=== PATIENT | male | born 1960 | race Caucasian/White ===

== ENCOUNTER → 2020-01-16 10:46 | Outpatient (BNVA) | payer OTHER, SELFPAY | PROVIDERS: Family Provider Emergency Medicine Emergency Medical Services; PCP Emergency Medicine Emergency Medical Services; Visit Provider Urology | DX: N39.9 Disorder of urinary system, unspecified (principal); N48.6 Induration penis plastica | CPT/HCPCS: 81001 ==

== ENCOUNTER → 2020-11-21 14:47 | Outpatient (BNVA) | payer OTHER, SELFPAY | PROVIDERS: Family Provider Emergency Medicine Emergency Medical Services; PCP Emergency Medicine Emergency Medical Services; Visit Provider Urology | DX: N48.6 Induration penis plastica (principal) | CPT/HCPCS: 81003 ==

== ENCOUNTER → 2021-05-29 15:00 | Outpatient (BNVA) | payer OTHER, SELFPAY | PROVIDERS: Family Provider Emergency Medicine Emergency Medical Services; PCP Emergency Medicine Emergency Medical Services; Visit Provider Urology | DX: N48.6 Induration penis plastica (principal) | CPT/HCPCS: 81003 ==

== ENCOUNTER → 2021-12-02 12:28 | Outpatient (BNVA) | payer OTHER, SELFPAY | PROVIDERS: Family Provider Emergency Medicine Emergency Medical Services; PCP Emergency Medicine Emergency Medical Services; Visit Provider Internal Medicine Cardiovascular Disease | DX: R07.9 Chest pain, unspecified (principal); I10 Essential (primary) hypertension; E78.5 Hyperlipidemia, unspecified; E11.9 Type 2 diabetes mellitus without complications; E66.9 Obesity, unspecified; Z68.39 Body mass index [BMI] 39.0-39.9, adult | CPT/HCPCS: 93005; 99204 ==

== ENCOUNTER → 2022-04-01 12:18 | Outpatient (BNVA) | payer OTHER, SELFPAY | PROVIDERS: Family Provider Emergency Medicine Emergency Medical Services; PCP Emergency Medicine Emergency Medical Services; Visit Provider Internal Medicine Cardiovascular Disease | DX: I10 Essential (primary) hypertension (principal); E11.9 Type 2 diabetes mellitus without complications; E66.9 Obesity, unspecified; Z68.41 Body mass index [BMI] 40.0-44.9, adult; E78.5 Hyperlipidemia, unspecified; R07.89 Other chest pain | CPT/HCPCS: 99213 ==

== ENCOUNTER → 2022-05-27 13:07 | Outpatient (BNVA) | payer OTHER, SELFPAY | PROVIDERS: Family Provider Emergency Medicine Emergency Medical Services; PCP Emergency Medicine Emergency Medical Services; Visit Provider Urology | DX: N48.6 Induration penis plastica (principal) | CPT/HCPCS: 81003; 99213 ==

== ENCOUNTER → 2022-10-22 09:22 | Outpatient (BNVA) | payer OTHER, SELFPAY | PROVIDERS: Family Provider Emergency Medicine Emergency Medical Services; PCP Emergency Medicine Emergency Medical Services; Visit Provider Podiatrist Foot & Ankle Surgery | DX: I73.9 Peripheral vascular disease, unspecified (principal); B35.1 Tinea unguium; M72.2 Plantar fascial fibromatosis; L84 Corns and callosities; E11.9 Type 2 diabetes mellitus without complications | CPT/HCPCS: 11056; 99204 ==

== ENCOUNTER → 2023-09-16 07:57 | Outpatient (BNVA) | payer OTHER, SELFPAY | PROVIDERS: Family Provider Emergency Medicine Emergency Medical Services; PCP Emergency Medicine Emergency Medical Services; Referring Provider Emergency Medicine Emergency Medical Services; Visit Provider Surgery | DX: Z12.11 Encounter for screening for malignant neoplasm of colon (principal) | CPT/HCPCS: 99203 ==

== ENCOUNTER 2023-09-28 10:32 | Outpatient (CLI) | payer OTHER, SELFPAY ==
--- NOTE | 2023-09-28 10:38 | MR_ITS ---
WS: [id number] MRI BRAIN WITH AND WITHOUT CONTRAST HISTORY: HEADACHES X 3 MONTHS COMPARISON: None available. TECHNIQUE: Multiplanar imaging performed through the brain with MultiHance 20 ml's IV. No acute infarcts are seen. Shannon-white matter differentiation is well preserved. There are a few scat tered T2 and FLAIR signal hyperintensities in the subcortical and periventricular white matter. Distr ibution is most likely small vessel disease. No pericallosal signal abnormality. No susceptibility artifacts or prior lacunar infarcts. Ventricles and extra-axial spaces are normal. Clivus and pituitary gland are normal. Visualized posterior fossa and brainstem are also normal. Postcontrast images are negative for masses or vascular malformations. Dural venous sinuses are normal. Paranasal sinuses: Well aerated with no significant disease. Mastoid air cells: Normal. Calvarium and scalp: Normal. IMPRESSION: 1. No acute infarct or enhancing mass. 2. No significant atrophy. 3. Very minimal small vessel ischemic type changes in the periventricular white matter. 4. No sinus disease.
[2023-09-28] MEDS: gadobenate dimeglumine 20 mL vial IV (12:20)
== END 2023-09-28 10:33 | disposition home or self-care (01) ==
LOC: RAD 10:33
PROVIDERS: Family Provider Emergency Medicine Emergency Medical Services; PCP Emergency Medicine Emergency Medical Services; Visit Provider Emergency Medicine Emergency Medical Services
DX: R51.9 Headache, unspecified (principal)
CPT/HCPCS: 70553; A9577

== ENCOUNTER 2023-12-17 07:56 | Day surgery (SDC) | payer OTHER, SELFPAY ==
--- NOTE | 2023-12-17 07:31 | W.PM.OPSFHP ---
Same Day Surgery H&P Indication for Procedure/HPI DATE OF PROCEDURE: December 17, 2023 CHIEF COMPLAINT/INDICATIONFOR SURGICAL PROCEDURE: need for screening colonoscopy PREOP DIAGNOSIS: need for screening colonoscopy PLANNED PROCEDURE: Operation Date: 12/17/23 09:15 Proposed Procedures p 80738 colon G0105 screen colon H risk Z12.11(Not Applicable) - Eric Slater MD Medications/Allergies* Home Medications Medication Instructions Recorded Confirmed Type lisinopril 20 mg tablet 20 mg PO DAILY 01/16/20 12/15/23 History rosuvastatin 10 mg tablet 10 mg PO DAILY 01/16/20 12/15/23 History Lactobacillus acidophilus 10 mg PO DAILY 09/16/23 12/15/23 History (Acidophilus capsule) cholecalciferol (vitamin D3) 50 50 mcg PO DAILY 09/16/23 12/15/23 History mcg (2,000 unit) capsule coenzyme Q10 100 mg capsule 100 mg PO DAILY 09/16/23 12/15/23 History (CoQ-10) empagliflozin 25 mg tablet 25 mg PO DAILY 09/16/23 12/15/23 History (Jardiance) metformin 500 mg tablet 1,000 mg PO BIDAC 09/16/23 12/15/23 History multivitamin 1 tab PO DAILY 09/16/23 12/15/23 History sulfamethoxazole 800 1 tab PO BID 12/15/23 12/15/23 History mg-trimethoprim 160 mg tablet Allergies/Adverse Reactions Allergy/AdvReac Type Severity Reaction Status Date / Time No Known Allergies Allergy Verified 12/15/23 11:30 Pertinent History/Comorbid Conditions* Medical History (Updated 09/16/23 @ 11:48 by Eric Slater MD) Diabetes mellitus Obesity Hyperlipidemia HTN (hypertension) Peyronie's disease Family History (Updated 01/16/20 @ 10:42 by GABRIELLE Thompson) Father, at age 70 CAD (coronary artery disease) Brother Cancer Father Social History Smoking and tobacco/nicotine status: never used tobacco/nicotine Alcohol intake: never Substance/Drug Use: unknown Adopted: No Caregiver/support person: No Lives independently: No Household members: spouse Marital status: Current occupational status: retired Pertinent Exam Findings alert, oriented x 3, clear to auscultation bilaterally and regular rate & rhythm Recommendations Surgery/Procedure today Coding Level of Care Code Acute Code for Chg Fwd
[2023-12-17 08:10] VITALS: BP 135/89; PULSE 92; RESP 18; TEMP 36.6; O2SAT 97
[2023-12-17] MEDS: sodium chloride 0.9% 1,000 ML 30 ML IV (08:10)
[2023-12-17 08:11] VITALS: BMI 39.9
[2023-12-17 08:22] LABS: Glucose Point of Care 95 mg/dL (70-110)
--- NOTE | 2023-12-17 08:22 | ANES.PREANE2 ---
Pre-Anesthetic Assessment Height/Weight: Height 1.7 m Weight 115.666 kg Temp Pulse Resp BP Pulse Ox O2 Del Method 97.9 F 92 18 135/89 97 Room Air 12/17/23 08:10 12/17/23 08:10 12/17/23 08:10 12/17/23 08:10 12/17/23 08:10 12/17/23 08:10 Preop Diagnosis: need for screening colonoscopy Operation Date: 12/17/23 09:15 Proposed Procedures p [id number] colon G0105 screen colon H risk Z12.11(Not Applicable) - Eric Slater MD Was Beta Leon taken within 24 hours: N/A Was Clonidine taken within 24 hours: N/A Last Intake: 23:00 Social No alcohol and No tobacco Exam alert and oriented x 3 Airway Submandibular: within normal limits Cervical ROM: within normal limits Mallampati: Class III Dentition: other (missing) History/ROS No significant history except as noted Pulmonary None reported CV/HEM Hypertension None reported Hepatic None reported GI Gastroesophageal Reflux Disease Metabolic Diabetes Mellitus and Morbid Obesity Musc/skel Lower Back Pain and Osteoarthritis/DJD Neuropsych None reported Anesthetic Plan ASA status: 3 Anesthesia: MAC Risk of > 500 ml blood loss (7ml/kg in children): No Medications/Allergies Home Medications Medication Instructions Recorded Confirmed Last Taken Type lisinopril 20 mg tablet 20 mg PO DAILY 01/16/20 12/15/23 12/15/23 History rosuvastatin 10 mg tablet 10 mg PO DAILY 01/16/20 12/15/23 12/15/23 History Lactobacillus acidophilus 10 mg PO DAILY 09/16/23 12/15/23 12/15/23 History (Acidophilus capsule) cholecalciferol (vitamin D3) 50 50 mcg PO DAILY 09/16/23 12/15/23 12/15/23 History mcg (2,000 unit) capsule coenzyme Q10 100 mg capsule 100 mg PO DAILY 09/16/23 12/15/23 12/15/23 History (CoQ-10) empagliflozin 25 mg tablet 25 mg PO DAILY 09/16/23 12/15/23 12/15/23 History (Jardiance) metformin 500 mg tablet 1,000 mg PO BIDAC 09/16/23 12/15/23 12/15/23 History multivitamin 1 tab PO DAILY 0212/15/23 12/15/23 History sulfamethoxazole 800 1 tab PO BID 12/15/23 12/15/23 12/15/23 History mg-trimethoprim 160 mg tablet Allergies Allergy/AdvReac Type Severity Reaction Status Date / Time No Known Allergies Allergy Verified 12/17/23 08:14 Current Medications Generic Name Dose Route Start Last Admin Trade Name Namq PRN Reason Stop Dose Admin Sodium Chloride 1,000 mls @ 30 mls/hr 12/17/23 08:00 12/17/23 08:10 Sodium Chloride 0.9% IV 12/18/23 07:59 30 mls/hr .Q24H JAMES Administration PFSH Anesthesia Medical History (Updated 09/16/23 @ 11:48 by Eric Slater MD) Diabetes mellitus Obesity Hyperlipidemia HTN (hypertension) Peyronie's disease Family History Brother CAD (coronary artery disease) Father , at age 70 Cancer Social History Smoking and tobacco/nicotine status: never used tobacco/nicotine Alcohol intake: never Substance/Drug Use: unknown Adopted: No Caregiver/support person: No Lives independently: No Household members: spouse Marital status: Current occupational status: retired Data Anesthesia Cardiac Studies: No Data to Display
[2023-12-17 09:24] VITALS: BP 92/66; PULSE 93; RESP 18; TEMP 36.3; O2SAT 91
[2023-12-17 09:33] VITALS: BP 97/60; PULSE 89; RESP 18; O2SAT 93
[2023-12-17 09:43] VITALS: BP 101/68; PULSE 86; RESP 18; O2SAT 95
[2023-12-17 09:53] VITALS: BP 127/75; PULSE 81; RESP 18; O2SAT 96
--- NOTE | 2023-12-17 10:15 | ANE.PACU2 ---
Inpatient post-anesthesia follow up: Airway intact: Yes Vital signs: Temperature 97.3 F Pulse Rate 81 Respiratory Rate 18 Blood Pressure 127/75 Pulse Oximetry 96 Oxygen Delivery Me thod Room Air Oxygen Flow Rate Fraction of Inspir ed Oxygen Hydration adequate: Yes Nausea and vomiting: No Pain level: 1 Mental status: Baseline
== END 2023-12-17 10:15 | disposition home or self-care (01) ==
PROVIDERS: Family Provider Emergency Medicine Emergency Medical Services; PCP Emergency Medicine Emergency Medical Services; Visit Provider Surgery
PROC: 0DJD8ZZ Inspection of Lower Intestinal Tract, Via Natural or Artificial Opening Endoscopic (ICD-10-PCS; CPT 45378; principal; 2023-12-17 09:15)
DX: Z12.11 Encounter for screening for malignant neoplasm of colon (principal); K63.5 Polyp of colon; E11.9 Type 2 diabetes mellitus without complications
CPT/HCPCS: 36416; 45385; 82962; 88305; J2704; J7030

== ENCOUNTER → 2023-12-23 08:24 | Outpatient (BNVA) | payer OTHER, SELFPAY | PROVIDERS: Family Provider Emergency Medicine Emergency Medical Services; PCP Emergency Medicine Emergency Medical Services; Visit Provider Surgery | DX: Z09 Encounter for follow-up examination after completed treatment for conditions other than malignant neoplasm (principal) | CPT/HCPCS: 99213 ==

== ENCOUNTER → 2024-03-15 07:58 | Outpatient (BNVA) | payer OTHER, SELFPAY | PROVIDERS: Family Provider Emergency Medicine Emergency Medical Services; PCP Emergency Medicine Emergency Medical Services; Visit Provider Podiatrist Foot & Ankle Surgery | DX: L60.0 Ingrowing nail (principal) | CPT/HCPCS: 99213 ==

== ENCOUNTER → 2024-05-26 07:39 | Outpatient (BNVA) | payer OTHER, SELFPAY | PROVIDERS: Family Provider Emergency Medicine Emergency Medical Services; PCP Emergency Medicine Emergency Medical Services; Visit Provider Podiatrist Foot & Ankle Surgery | DX: E11.69 Type 2 diabetes mellitus with other specified complication (principal); B35.1 Tinea unguium; I73.9 Peripheral vascular disease, unspecified; Z79.84 Long term (current) use of oral hypoglycemic drugs | CPT/HCPCS: 11721 ==

== ENCOUNTER → 2024-07-27 07:44 | Outpatient (BNVA) | payer OTHER, SELFPAY | PROVIDERS: Family Provider Emergency Medicine Emergency Medical Services; PCP Emergency Medicine Emergency Medical Services; Visit Provider Podiatrist Foot & Ankle Surgery | DX: B35.1 Tinea unguium (principal); I73.9 Peripheral vascular disease, unspecified; E11.69 Type 2 diabetes mellitus with other specified complication; Z79.84 Long term (current) use of oral hypoglycemic drugs | CPT/HCPCS: 11721 ==

== ENCOUNTER → 2024-09-29 12:23 | Outpatient (BNVA) | payer OTHER, SELFPAY | PROVIDERS: Family Provider Emergency Medicine Emergency Medical Services; PCP Emergency Medicine Emergency Medical Services; Visit Provider Podiatrist Foot & Ankle Surgery | DX: L60.0 Ingrowing nail (principal); E11.69 Type 2 diabetes mellitus with other specified complication; B35.1 Tinea unguium; I73.9 Peripheral vascular disease, unspecified; Z79.84 Long term (current) use of oral hypoglycemic drugs | CPT/HCPCS: 11750; A6219 ==

== ENCOUNTER → 2024-10-13 12:21 | Outpatient (BNVA) | payer OTHER, SELFPAY | PROVIDERS: Family Provider Emergency Medicine Emergency Medical Services; PCP Emergency Medicine Emergency Medical Services; Visit Provider Podiatrist Foot & Ankle Surgery | DX: L60.0 Ingrowing nail (principal); B35.1 Tinea unguium; I73.9 Peripheral vascular disease, unspecified; E11.69 Type 2 diabetes mellitus with other specified complication; Z79.84 Long term (current) use of oral hypoglycemic drugs | CPT/HCPCS: 99213 ==

== ENCOUNTER → 2024-11-17 12:17 | Outpatient (BNVA) | payer OTHER, SELFPAY | PROVIDERS: Family Provider Emergency Medicine Emergency Medical Services; PCP Emergency Medicine Emergency Medical Services; Visit Provider Podiatrist Foot & Ankle Surgery | DX: L60.0 Ingrowing nail (principal); B35.1 Tinea unguium; I73.9 Peripheral vascular disease, unspecified; E11.9 Type 2 diabetes mellitus without complications; E11.69 Type 2 diabetes mellitus with other specified complication; Z79.84 Long term (current) use of oral hypoglycemic drugs | CPT/HCPCS: 99213 ==

== ENCOUNTER → 2025-01-18 07:39 | Outpatient (BNVA) | payer OTHER, SELFPAY | PROVIDERS: Family Provider Emergency Medicine Emergency Medical Services; PCP Emergency Medicine Emergency Medical Services; Visit Provider Podiatrist Foot & Ankle Surgery | DX: E11.69 Type 2 diabetes mellitus with other specified complication (principal); B35.1 Tinea unguium; I73.9 Peripheral vascular disease, unspecified; Z79.84 Long term (current) use of oral hypoglycemic drugs | CPT/HCPCS: 11721 ==

== ENCOUNTER → 2025-03-23 07:36 | Outpatient (BNVA) | payer OTHER, SELFPAY | PROVIDERS: Family Provider Emergency Medicine Emergency Medical Services; PCP Emergency Medicine Emergency Medical Services; Visit Provider Podiatrist Foot & Ankle Surgery | DX: E11.69 Type 2 diabetes mellitus with other specified complication (principal); B35.1 Tinea unguium; I73.9 Peripheral vascular disease, unspecified; Z79.84 Long term (current) use of oral hypoglycemic drugs | CPT/HCPCS: 11721 ==

== ENCOUNTER → 2025-06-01 08:19 | Outpatient (BNVA) | payer OTHER, SELFPAY | PROVIDERS: Family Provider Emergency Medicine Emergency Medical Services; PCP Emergency Medicine Emergency Medical Services; Visit Provider Podiatrist Foot & Ankle Surgery | DX: E11.8 Type 2 diabetes mellitus with unspecified complications (principal); B35.1 Tinea unguium; I73.9 Peripheral vascular disease, unspecified; E11.69 Type 2 diabetes mellitus with other specified complication; Z79.84 Long term (current) use of oral hypoglycemic drugs | CPT/HCPCS: 11721 ==

== ENCOUNTER 2025-07-12 19:36 | Outpatient (CLI) | payer OTHER, SELFPAY | END 2025-07-12 19:37 | disposition home or self-care (01) | LOC: SLEEP 19:37 | PROVIDERS: Family Provider Emergency Medicine Emergency Medical Services; PCP Emergency Medicine Emergency Medical Services; Referring Provider Nurse Practitioner; Visit Provider Internal Medicine Pulmonary Disease | DX: G47.33 Obstructive sleep apnea (adult) (pediatric) (principal) | CPT/HCPCS: 95811 ==

== ENCOUNTER → 2025-08-07 13:04 | Outpatient (BNVA) | payer OTHER, SELFPAY | PROVIDERS: Visit Provider Orthopaedic Surgery | DX: M25.562 Pain in left knee (principal); G89.29 Other chronic pain; M17.12 Unilateral primary osteoarthritis, left knee | CPT/HCPCS: 20610; 73560; 73565; 99204; J3301; J3490; J9999 ==